=== PATIENT | female | born 1965 | race Caucasian/White ===

== ENCOUNTER 2016-10-05 14:23 | Emergency (ER) | payer BC, OTHER ==
--- NOTE | 2016-10-05 15:00 | ED ---
Head Injury HPI - General Chief complaint: Head Injury Stated complaint: [facility] sent/Head Injury Time Seen by Provider: 10/05/16 14:45 Source: patient, RN notes reviewed Mode of arrival: ambulatory Limitations: no limitations - History of Present Illness Initial comments: Patient is a 50-year-old female presents to the emergency room for evaluation of head pain. Patient states on Sunday she was going down to grab something and stood up and hit the left side of her head against a drinking fountain. Patient denies loss of consciousness. Patient states she saw ji afterwards. Patient states she's been having a dull constant headache on the left side of her head behind her left eye. Patient states while riding her bike yesterday she had to stop and vomited once. Patient states she is feeling nauseous ever since. Patient states she still has a dull headache today with nausea. Patient denies any vomiting. Patient denies changes in vision. Patient has ear pain. Patient denies ringing in ears. Patient denies dizziness. Patient states she's having slight pain on the left side of her neck. Patient denies any numbness or tingling in her ears or toes. Patient states taking Advil with slight relief of symptoms. Patient denies fevers or chills. Patient denies taking blood thinners. Patient states she went to [facility] and was advised to come here. Patient denies any other injuries or complaints. - Related Data Home Medications Medication Instructions Recorded Confirmed Desvenlafaxine Succinate [Pristiq 50 mg PO DAILY 04/12/16 04/14/16 ER] Allergies/Adverse reactions: Allergies Allergy/AdvReac Type Severity Reaction Status Date / Time Sulfa (Sulfonamide Allergy Swelling Verified 04/12/16 09:38 Antibiotics) Review of Systems ROS Statement: Those systems with pertinent positive or pertinent negative responses have been documented in the HPI. ROS Other: All systems not noted in ROS Statement are negative. Past Medical History Past Medical History: GI Bleed Additional Past Medical History / Comment(s): urinary stress incontinence History of Any Multi-Drug Resistant Organisms: None Reported Past Surgical History: No Surgical Hx Reported Past Anesthesia/Blood Transfusion Reactions: Motion Sickness Past Psychological History: Depression Smoking Status: Never smoker Past Alcohol Use History: None Reported Past Drug Use History: None Reported - Past Family History Mother Family Medical History: Unable to Obtain Additional Family Medical History / Comment(s): pt adopted unaware of family hx General Exam - General Exam Comments Initial Comments: Sitting in exam room in no acute distress. Limitations: no limitations General appearance: alert, in no apparent distress Head exam: Present: atraumatic, normocephalic, normal inspection Eye exam: Present: normal appearance, PERRL, EOMI Pupils: Present: normal accommodation ENT exam: Present: normal exam Neck exam: Present: normal inspection Respiratory exam: Present: normal lung sounds bilaterally. Absent: respiratory distress Cardiovascular Exam: Present: regular rate, normal rhythm, normal heart sounds Extremities exam: Present: normal inspection Back exam: Present: normal inspection Neurological exam: Present: alert, oriented X3, CN II-XII intact, normal gait Expanded Patient oriented to: Present: person, place, time Speech: Present: fluid speech Cranial nerves: EOM's Intact: Normal, Facial Sensation: Normal Sensory exam: Upper Extremity Light Touch: Normal, Lower Extremity Light Touch: Normal Motor strength exam: RUE: 5, LUE: 5, RLE: 5, LLE: 5 Eye Response: (4) open spontaneously Motor Response: (6) obeys commands Verbal Response: (5) oriented Psychiatric exam: Present: normal affect, normal mood Skin exam: Present: warm, dry, intact, normal color. Absent: rash Course Vital Signs 10/05/16 10/05/16 14:38 16:05 Temperature 98 F 98.7 F Pulse Rate 81 87 Respiratory 20 18 Rate Blood Pressure 122/82 118/97 O2 Sat by Pulse 96 98 Oximetry Medical Decision Making - Medical Decision Making Patient is a 50-year-old female presents emergency room for evaluation of headache and nausea. Patient did hit her head on a drinking fountain on Sunday. Patient has been having nausea ever since. Brain/C-spine CT shows no acute findings. Patient was offered Zofran. Patient declined. Advised patient to continue taking Tylenol or ibuprofen at home. Patient states she understands everything that was discussed with her. Return parameters discussed. - Radiology Data Radiology results: report reviewed, image reviewed Disposition Clinical Impression: Head injury Disposition: HOME SELF-CARE Condition: Good Instructions: Head Injury (ED) Additional Instructions: Take Tylenol or Motrin as needed for headache. Please follow up with primary care provider in 1-2 days for reevaluation. If any new symptom arises or symptoms worsen, return to ER as soon as possible. Referrals: Eduar Bettencourt MD [Primary Care Provider] - 1-2 days Time of Disposition: 15:53
--- NOTE | 2016-10-05 15:50 | CT ---
EXAMINATION TYPE: CT brain aleksandr banerjee con DATE OF EXAM: 10/05/2016 3:32 PM COMPARISON: NONE HISTORY: CASTORE[place] and nausea after head injury x3 days ago. CT DLP: 2077 mGycm Automated exposure control for dose reduction was used. TECHNIQUE: CT scan of the head and cervical spine are performed without contrast. FINDINGS: There is no acute intracranial hemorrhage, mass effect, or midline shift identified. The ventricles and sulci are within normal limits in size. The globes are intact and the visualized sin uses are clear. Cervical spine is visualized in its entirety from C1 through upper thoracic levels and demonstrates s atisfactory alignment without evidence of acute fracture or dislocation. Prevertebral soft tissue ap pears within normal limits. Loss of disc height present at C5-6, C4-5, there is associated spondylosi s. C3-4 shows mild right-sided foraminal encroachment as at C4-5, C5-6 foraminal encroachment is pres ent right greater than left. There is multilevel facet arthropathy. The C1-C2 articulation is unrema rkable. IMPRESSION: 1. There is no acute fracture or dislocation evident in the cervical spine. 2. No acute intracranial hemorrhage, mass effect, or midline shift is seen.
[2016-10-05 16:06] VITALS: BP 118/97; PULSE 87; RESP 18; TEMP 98.7
== END 2016-10-05 16:06 | disposition home or self-care (01) ==
LOC: EC 14:23
DX: S09.90XA Unspecified injury of head, initial encounter (principal); H92.09 Otalgia, unspecified ear; M54.2 Cervicalgia; F32.9 Major depressive disorder, single episode, unspecified; Z79.899 Other long term (current) drug therapy; Z88.2 Allergy status to sulfonamides; W22.09XA Striking against other stationary object, initial encounter; Y93.89 Activity, other specified
CPT/HCPCS: 70450; 72125; 99283

== ENCOUNTER → 2017-08-22 | Outpatient (CLI) | payer BC ==
--- NOTE | 2017-08-24 10:53 | MM ---
Reason for exam: screening (asymptomatic). Last mammogram was performed 2 years and 3 months ago. History: No known family history of cancer. Benign US right guided VAD of the right breast, December 26, 2010. Cancelled Right US Aspiration of both breasts, October 22, 2008. Cyst aspiration of both breasts, 2005. Took hormonal contraceptives for 6 years beginning at age 16. Physical Findings: A clinical breast exam by your physician is recommended on an annual basis and results should be correlated with mammographic findings. MG Screening Mammo w CAD Bilateral CC and MLO view(s) were taken. Prior study comparison: May 26, 2015, bilateral MG 3d diag mammo w/cad [facility]. November 17, 2013, bilateral MG diagnostic mammo w CAD [facility]. The breast tissue is heterogeneously dense. This may lower the sensitivity of mammography. There are benign round, oval, circumscribed bilateral masses waxing and waning in size. No suspicious abnormality. No significant changes when compared with prior studies. ASSESSMENT: Benign, BI-RAD 2 RECOMMENDATION: Routine screening mammogram of both breasts in 1 year.
== END | disposition home or self-care (01) ==
LOC: RADMAMWWP 16:24
PROVIDERS: ATTEND Obstetrics & Gynecology
DX: Z12.31 Encounter for screening mammogram for malignant neoplasm of breast (principal)
CPT/HCPCS: 77067

== ENCOUNTER → 2018-10-30 | Outpatient (CLI) | payer BC ==
--- NOTE | 2018-11-01 10:12 | MM ---
Reason for exam: screening (asymptomatic). Last mammogram was performed 1 year and 2 months ago. History: No known family history of cancer. Benign US right guided VAD of the right breast, December 26, 2010. Cancelled Right US Aspiration of both breasts, October 22, 2008. Cyst aspiration of both breasts, 2005. Took hormonal contraceptives for 6 years beginning at age 16. Physical Findings: A clinical breast exam by your physician is recommended on an annual basis and results should be correlated with mammographic findings. MG 3D Screening Mammo W/Cad Bilateral CC and MLO view(s) were taken. Prior study comparison: August 22, 2017, bilateral MG screening mammo w CAD. May 26, 2015, bilateral MG 3d diag mammo w/cad [facility]. The breast tissue is heterogeneously dense. This may lower the sensitivity of mammography. Previous mammotome biopsy in the right breast. There is chronic nodularity bilaterally. No significant changes when compared with prior studies. ASSESSMENT: Benign, BI-RAD 2 RECOMMENDATION: Routine screening mammogram of both breasts in 1 year.
== END | disposition home or self-care (01) ==
LOC: RADMAMWWP 15:32
PROVIDERS: ATTEND Obstetrics & Gynecology
DX: Z12.31 Encounter for screening mammogram for malignant neoplasm of breast (principal)
CPT/HCPCS: 77063; 77067

== ENCOUNTER → 2020-01-26 | Outpatient (CLI) | payer BC ==
--- NOTE | 2020-01-27 10:04 | MM ---
Reason for exam: screening (asymptomatic). Last mammogram was performed 1 year and 3 months ago. History: No known family history of cancer. Benign US right guided VAD of the right breast, December 26, 2010. Cancelled Right US Aspiration of both breasts, October 22, 2008. Cyst aspiration of both breasts, 2005. Took hormonal contraceptives for 6 years beginning at age 16. Physical Findings: A clinical breast exam by your physician is recommended on an annual basis and results should be correlated with mammographic findings. MG Screening Mammo w CAD Bilateral CC and MLO view(s) were taken. Prior study comparison: October 30, 2018, bilateral MG 3d screening mammo w/cad. August 22, 2017, bilateral MG screening mammo w CAD. The breast tissue is heterogeneously dense. This may lower the sensitivity of mammography. There is chronic nodularity bilaterally. No significant changes when compared with prior studies. ASSESSMENT: Benign, BI-RAD 2 RECOMMENDATION: Routine screening mammogram of both breasts in 1 year.
== END | disposition home or self-care (01) ==
LOC: RADMAMWWP 10:01
PROVIDERS: ATTEND Obstetrics & Gynecology
DX: Z12.31 Encounter for screening mammogram for malignant neoplasm of breast (principal)
CPT/HCPCS: 77067

== ENCOUNTER 2020-12-16 21:46 | Emergency (ER) | payer BC ==
[2020-12-16] MEDS ORDERED: ACETAMINOPHEN TAB 500 MG TAB PO STA (22:27)
--- NOTE | 2020-12-16 22:27 | ED ---
Lower Extremity Injury HPI - General Chief Complaint: Extremity Injury, Lower Stated Complaint: Lft ankle injury Time Seen by Provider: 12/16/20 21:56 Source: patient Mode of arrival: ambulatory Limitations: physical limitation - History of Present Illness Initial Comments: 55-year-old female presents to the emergency department with chief complaint of an ankle injury. Patient reports she suffered an injury stepping from 1 foot away. Patient reports this occurred about 2 hours prior to arrival. Patient states now she developing swelling in her foot. States the pain is sharp, 7/10. Patient reports the pain is exacerbated with ambulation and alleviated at rest. She denies any numbness or tingling paresthesias or weakness. She denies taking medication to alleviate the symptoms. - Related Data Home Medications Medication Instructions Recorded Confirmed Desvenlafaxine Succinate [Pristiq 50 mg PO DAILY 04/12/16 04/14/16 ER] Allergies Allergy/AdvReac Type Severity Reaction Status Date / Time Sulfa (Sulfonamide Allergy Swelling Verified 12/16/20 21:51 Antibiotics) Review of Systems ROS Statement: Those systems with pertinent positive or pertinent negative responses have been documented in the HPI. ROS Other: All systems not noted in ROS Statement are negative. Past Medical History Past Medical History: GI Bleed Additional Past Medical History / Comment(s): urinary stress incontinence, History of Any Multi-Drug Resistant Organisms: None Reported Past Surgical History: No Surgical Hx Reported Past Anesthesia/Blood Transfusion Reactions: Motion Sickness Past Psychological History: Depression Smoking Status: Never smoker Past Alcohol Use History: Occasional Past Drug Use History: None Reported - Past Family History Mother Family Medical History: Unable to Obtain Additional Family Medical History / Comment(s): pt adopted unaware of family hx General Exam Limitations: physical limitation General appearance: alert, in no apparent distress Head exam: Present: atraumatic, normocephalic, normal inspection Eye exam: Present: normal appearance, EOMI Pupils: Present: normal accommodation ENT exam: Present: normal exam, normal oropharynx, mucous membranes moist Neck exam: Present: normal inspection, full ROM. Absent: tenderness, lymphadenopathy Respiratory exam: Present: normal lung sounds bilaterally. Absent: respiratory distress Cardiovascular Exam: Present: regular rate, normal rhythm, normal heart sounds. Absent: systolic murmur Extremities exam: Present: full ROM, tenderness (Midfoot or medial malleolus tenderness.), normal capillary refill, joint swelling (Left foot), other (Pa lpable DP and PT bilaterally. Sensation intact to the left foot). Absent: normal inspection (Swelling noted on the mid foot and medial aspect of the left ankle.), pedal edema, calf tenderness Back exam: Present: normal inspection, full ROM Neurological exam: Present: alert, oriented X3 Psychiatric exam: Present: normal affect, normal mood Skin exam: Present: warm, dry, intact, normal color Course Vital Signs 12/16/20 21:47 Temperature 97.8 F Pulse Rate 118 H Respiratory 17 Rate Blood Pressure 139/69 O2 Sat by Pulse 97 Oximetry Medical Decision Making - Medical Decision Making 55-year-old female presents to the emergency prompt a chief complaint of foot injury. On Physical examination, she is neurovascularly intact. There is localized edema but no ecchymosis. X-rays of the ankle and foot are unremarkable. I will apply Julio wrap. 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 Strict return parameters were thoroughly discussed patient was attending agreeable. Case discussed with Dr chang Disposition Clinical Impression: Left ankle sprain, Left ankle injury Disposition: HOME SELF-CARE Condition: Stable Instructions (If sedation given, give patient instructions): Foot Sprain (ED) Additional Instructions: Please return to the Emergency Department if symptoms worsen or any other concerns. Is patient prescribed a controlled substance at d/c from ED?: No Referrals: Heidi Love MD [Primary Care Provider] - 1-2 days Mikhail Reilly MD [STAFF PHYSICIAN] - 1-2 days Time of Disposition: 23:41
--- NOTE | 2020-12-16 23:05 | XR ---
EXAMINATION TYPE: XR ankle complete LT DATE OF EXAM: 12/16/2020 COMPARISON: NONE HISTORY: Ankle pain TECHNIQUE: 3 views FINDINGS: Ankle mortise is anatomic. There is plantar and Achilles calcaneal spurring. I see no fract ure nor dislocation. There are no erosions. IMPRESSION: Calcaneal spurring. No ankle fracture seen.
--- NOTE | 2020-12-16 23:12 | XR ---
EXAMINATION TYPE: XR foot complete LT DATE OF EXAM: 12/16/2020 COMPARISON: NONE HISTORY: Foot pain TECHNIQUE: 3 views FINDINGS: I see no fracture nor dislocation. Metatarsals are intact. There is plantar and Achilles ca lcaneal spurring. There is soft tissue swelling of the forefoot. IMPRESSION: Soft tissue mild swelling. No fracture seen. Calcaneal spurring.
[2020-12-17] VITALS: BP 146/69; PULSE 72; RESP 18; TEMP 97.7
== END 2020-12-16 23:48 | disposition home or self-care (01) ==
LOC: EC 21:46
DX: S93.402A Sprain of unspecified ligament of left ankle, initial encounter (principal); F32.9 Major depressive disorder, single episode, unspecified; W10.8XXA Fall (on) (from) other stairs and steps, initial encounter; Y92.89 Other specified places as the place of occurrence of the external cause
CPT/HCPCS: 99284

== ENCOUNTER → 2021-03-31 | Outpatient (CLI) | payer BC ==
--- NOTE | 2021-03-31 07:56 | CT ---
EXAMINATION TYPE: CT foot LT wo con DATE OF EXAM: 03/31/2021 COMPARISON: Left foot x-ray December 16, 2020 HISTORY: Left foot pain, history of injury in December. CT DLP: 193.0 mGycm Automated exposure control for dose reduction was used. FINDINGS: Osseous structures are demineralized. Hindfoot structures redemonstrate moderate to large size inferi or calcaneal spur and some small calcifications along the distal Achilles tendon. Ankle mortise symme try is maintained. Normal sinus tarsi fat is seen. Midfoot structures show tiny ossifications possible healed bony fragments and there base of the metat arsals versus product of heterotopic ossification. For reference. Tiny fracture fragments along the d orsal surface sagittal image 33 near base of third and fourth metatarsals. For reference tiny bony fr agments or ossifications along the plantar surface central aspect coronal image 16 series 12 There is moderate narrowing along the plantar aspect of base of the second metatarsal. I do suspect in retros pect minimally displaced healed fracture of base of fourth metatarsal with slight cortical step off s agittal image 33. There is asymmetric mild to moderate narrowing along the dorsal aspect and its deric culation with the middle cuneiform. Flexion in the toes is seen. Slight hallux valgus positioning first metatarsal-phalangeal joint is re demonstrated. Mild scattered subcutaneous edema. No focal fluid collection. IMPRESSION: Healed minimally displaced fracture base of fourth metatarsal. Midfoot level show several tiny bone fragments or soft tissue ossifications as detailed above.
== END | disposition home or self-care (01) ==
LOC: RADCTMAIN 07:16
PROVIDERS: ATTEND Podiatrist
DX: M79.672 Pain in left foot (principal)

== ENCOUNTER → 2022-10-10 | Outpatient (CLI) | payer BC ==
--- NOTE | 2022-10-11 19:10 | MM ---
Reason for Exam: Screening (asymptomatic). Last mammogram was performed 1 year(s) and 4 month(s) ago. Patient History: Menarche at age 10. First Full-Term at age 28. Late child-bearing (after 28). Postmenopausal. Hormonal Contraceptives, starting at age 16 for 6 years. 2005, Bilateral Cyst Aspiration. 12/26/2010, Benign Core Biopsy on the right side. 10/22/2008, Bilateral Cancelled Right US Aspiration. Risk Values: Ivory 5 year model risk: 2.2%. NCI Lifetime model risk: 12.2%. Prior Study Comparison: 10/30/2018 Bilateral Screening Mammogram, [facility]. 01/26/2020 Bilateral Screening Mammogram, [facility]. 06/07/2021 Bilateral Screening Mammogram, [facility]. Tissue Density: There are scattered fibroglandular densities. Findings: Analyzed By CAD. Pattern appears stable. There is chronic nodularity present bilaterally. No significant interval change is evident. A core marker is within the right breast. No suspicious groups of microcalcifications, spiculated or lobular masses, architectural distortion or other secondary signs of malignancy are mammographically apparent. Overall Assessment: Benign, BI-RAD 2 Management: Screening Mammogram of both breasts in 1 year. A negative mammogram report should not preclude additional follow up of suspicious palpable abnormalities. Patient should continue monthly self breast exam. A clinical breast exam by your physician is recommended on an annual basis and results should be correlated with mammographic findings. Electronically signed and approved by: Cheo Massey D.O. Radiologis
== END | disposition home or self-care (01) ==
LOC: RADMAMWWP 15:56
PROVIDERS: ATTEND Obstetrics & Gynecology
DX: Z12.31 Encounter for screening mammogram for malignant neoplasm of breast (principal); Z78.0 Asymptomatic menopausal state
CPT/HCPCS: 77067

== ENCOUNTER → 2023-12-11 | Outpatient (CLI) | payer BC ==
--- NOTE | 2023-12-16 16:33 | BD ---
EXAMINATION TYPE: Axial Bone Density DATE OF EXAM: 12/11/2023 CLINICAL HISTORY: 58 years old Female. ICD-10 CODE: Z78.0 Post menopausal without HRT Height: 163 Weight: 63.5 FRAX RISK QUESTIONS: History of Fracture in Adulthood: no Secondary Osteoporosis: no RISK FACTORS HISTORY OF: Surgery to Spine/Hip(right/left)/Wrist (right/left): no MEDICATIONS: Thyroid Medications: no Osteoporosis Medications: no EXAM MEASUREMENTS: Bone mineral densitometry was performed using the [employer] System. Bone mineral density as measured about the Lumbar spine is: ----- L1-L4(G/cm2): 1.153 T Score Values are as follows: ----- L1: -0.8 ----- L2: -0.9 ----- L3: -0.6 ----- L4: 0.8 ----- L1-L4: -0.2 Z Score Values are as follows: ----- L1: 0.1 ----- L2: 0.0 ----- L3: 0.3 ----- L4: 1.7 ----- L1-L4: 0.7 Bone mineral density baseline Bone mineral density about the R hip (g/cm2): 0.903 Bone mineral density about the L hip (g/cm2): 0.921 T Score values are as follows: -----R Neck: -1.6 -----L Neck: -1.5 -----R Total: -0.8 -----L Total: -0.7 Z Score values are as follows: -----R Neck: -0.6 -----L Neck: -0.5 -----R Total: -0.1 -----L Total: 0.0 Bone mineral density baseline FRAX%s: The graph provided illustrates a 8.3% chance for a major osteoporotic fx and a 0.8% chance fo r the hips probability for fx in 10 years time. IMPRESSION: Osteopenia (T Score between -2.5 and -1). There is slightly increased risk of fracture and the patient may be considered for treatment. Re-Screen 2-5 years. NOTE: T-SCORE=SD OF THE YOUNG ADULT MEAN.
--- NOTE | 2023-12-18 16:32 | MM ---
Reason for Exam: Screening (asymptomatic). Last mammogram was performed 1 year(s) and 2 month(s) ago. Patient History: Menarche at age 10. First Full-Term at age 28. Late child-bearing (after 28). Postmenopausal. Hormonal Contraceptives, starting at age 16 for 6 years. 2005, Bilateral Cyst Aspiration. 12/26/2010, Benign Core Biopsy on the right side. 10/22/2008, Bilateral Cancelled Right US Aspiration. Risk Values: Ivory 5 year model risk: 2.3%. NCI Lifetime model risk: 11.7%. Prior Study Comparison: 01/26/2020 Bilateral Screening Mammogram, [facility]. 06/07/2021 Bilateral Screening Mammogram, [facility]. 10/10/2022 Bilateral MG screening mammo w CAD, [facility]. Tissue Density: There are scattered areas of fibroglandular density. Findings: Analyzed By CAD. The pattern is symmetrical. Right sided marker is present. Focal asymmetry breasts. No suspicious groups of microcalcifications, spiculated or lobular masses, architectural distortion or other secondary signs of malignancy are mammographically apparent. Overall Assessment: Benign, BI-RAD 2 Management: Screening Mammogram of both breasts in 1 year. A negative mammogram report should not preclude additional follow up of suspicious palpable abnormalities. Patient should continue monthly self breast exam. A clinical breast exam by your physician is recommended on an annual basis and results should be correlated with mammographic findings. Note on Ivory scores and lifetime risk: 1. A Ivory score greater than 3% is considered moderate risk. If this is the case, consider specialist referral to assess eligibility for a risk reducing agent. 2. If overall lifetime risk for the development of breast cancer is 20% or higher, the patient may qualify for future screening with alternating mammogram and breast MRI. Electronically signed and approved by: Cheo Massey D.O. Radiologis
== END | disposition home or self-care (01) ==
LOC: RADMAMWWP 13:55
PROVIDERS: ATTEND Obstetrics & Gynecology
DX: Z12.31 Encounter for screening mammogram for malignant neoplasm of breast (principal); Z78.0 Asymptomatic menopausal state; R92.323 Mammographic fibroglandular density, bilateral breasts; M85.88 Other specified disorders of bone density and structure, other site
CPT/HCPCS: 77063; 77067; 77080